=== PATIENT | female | born 1965 | race Caucasian/White ===

== ENCOUNTER 2018-03-06 16:33 | Emergency (ER) | payer OTHER ==
[~2018-03-06] VITALS: Ht 154.9 cm; Wt 50.7 kg
[~2018-03-06 16:33] MED LIST: ALBUAER19 INH; DOUNEB INH; LORA0.5T12 PO; OMEP20CA59 PO; RANI150T85 PO; SYMIN160 INH
[2018-03-06 16:45] VITALS: Ht 154.9 cm; Wt 50.7 kg
[2018-03-06] MEDS ORDERED: SODIUM CHLORIDE 0.9% 1000ML 1,000 ML IV STA ×2 (16:52→17:03)
[2018-03-06] MEDS ORDERED: GUAIFENESIN 600 MG TABCR PO STA (16:52)
[2018-03-06] MEDS ORDERED: SODIUM CHLORIDE 0.65% NA SOLN 45 ML (OCEAN) STA (16:52)
[2018-03-06] MEDS ORDERED: ALBUT/IPRATROP 3MG/0.5MG NEB 3 ML VIAL INH ONE (17:00)
[2018-03-06] MEDS ORDERED: KETOROLAC TROMETHAMINE 30 MG/ML VIAL IV STA (17:03)
[2018-03-06] MEDS ORDERED: ACETAMINOPHEN 500 MG TAB PO STA (17:03)
[2018-03-06 17:06] VITALS: PULSE 127; O2SAT 97
--- NOTE | 2018-03-06 17:14 | EMERGENCY ROOM VISIT NOTE ---
History Report prepared by Louie: Denita Roblero Under the Supervision of: Dr. Mitul Hernandes M.D. First contact with patient: 16:49 Chief Complaint: COUGH Stated Complaint: COUGH, WHEEZING History of Present Illness The patient is a 52 year old female who presents to the Emergency Room with complaints of persistent coughing that began 4 days ago. She reports that her cough worsened today, noting that she has been experiencing trouble breathing, shortness of breath, chills, body aches, congestion, and tightness in her chest. The patient denies any swelling in her legs, pain with urination, having the flu this year, or taking any medications to relieve her symptoms. She notes that she has been using her inhaler and breathing treatments at home, which have helped relieve some of her discomfort. The patient reports a history of lung cancer, asthma, and COPD, noting that she stopped smoking years ago. Source of History: patient Onset: 4 days ago Position: other (respiratory ) Quality: other (cough) Timing: other (persistent) Modifying Factors (Relieving): other (inhaler and breathing treatments) Associated Symptoms: + chills, + SOB Note: Associated symptoms include: trouble breathing, body aches, congestion, and tightness in her chest. Patient denies any swelling in her legs or pain with urination. Review of Systems See HPI for pertinent positives and negatives. A total of ten systems were reviewed and were otherwise negative. Past Medical & Surgical Medical Problems: (1) Acute appendicitis (2) Asthma (3) Bronchitis (4) Chronic Obstructive Asthma, Nos (5) Kidney disease (6) Pneumonia (7) Pneumothorax (8) Skin problem (9) Tobacco Use Disorder Family History Cancer Diabetes mellitus Heart disease Hypertension Lung disease Social History Smoking Status: Former Smoker Drug Use: none Marital Status: Housing Status: lives with family Occupation Status: employed Current/Historical Medications Scheduled Budesonide/Formoterol Fumarate (Symbicort 160/4.5 Inhaler), 2 PUFFS INH BID Omeprazole (Prilosec), 20 MG PO QAM Oseltamivir Phosphate (Tamiflu), 75 MG PO BID Prednisone (Prednisone), 3 TAB PO DAILY Scheduled PRN Albuterol Hfa (Ventolin Hfa), 2-4 PUFFS INH Q4-6HRS PRN for SOB/Wheezing Ipratropium-Albuterol (Duoneb), 1 TREATMENT INH QID PRN for SOB/Wheezing Allergies Coded Allergies: No Known Allergies (Unverified , 08/30/16) Physical Exam Vital Signs Date Time Temp Pulse Resp B/P (MAP) Pulse Ox O2 Delivery O2 Flow Rate FiO2 03/06/18 18:40 36.8 133 18 148/61 98 Room Air 03/06/18 17:50 134 13 161/73 100 Nebulizer 15.0 03/06/18 17:11 127 03/06/18 17:06 127 18 97 Nasal Cannula 03/06/18 16:45 37.8 134 20 186/90 97 Room Air Physical Exam GENERAL: Awake, alert, fatigued-appearing, in no acute distress HENT: Dry mucous membranes. Normocephalic, atraumatic. Oropharynx unremarkable. EYES: Normal conjunctiva. Sclera non-icteric. NECK: Supple. No nuchal rigidity. FROM. No JVD. RESPIRATORY: Scattered wheezes and rhonchi. CARDIAC: Sinus tachycardia. Extremities warm and well perfused. Pulses equal. ABDOMEN: Soft, non-distended. No tenderness to palpation. No rebound or guarding. No masses. RECTAL: Deferred. MUSCULOSKELETAL: Chest examination reveals no tenderness. The back is symmetrical on inspection without obvious abnormality. There is no CVA tenderness to palpation. No joint edema. LOWER EXTREMITIES: Calves are equal size bilaterally and non-tender. No edema. No discoloration. NEURO: Normal sensorium. No sensory or motor deficits noted. SKIN: No rash or jaundice noted. Medical Decision & Procedures ER Provider Diagnostic Interpretation: Radiology results as stated below per my review and radiologist interpretation: CHEST ONE VIEW PORTABLE CLINICAL HISTORY: Atypical chest pain COMPARISON STUDY: 01/07/2015 FINDINGS: Post thoracotomy changes are present on the right. There is right paramediastinal fibrotic change. There is hyperinflation. There is underlying emphysema. There is no acute parenchymal consolidation. There are no significant pleural effusions.[ IMPRESSION: 1. No active disease in the chest 2. Emphysema, postthoracotomy changes on the right, and right paramediastinal fibrotic scarring. Electronically signed by: Cristobal Osei M.D. 03/06/2018 5:27 PM Dictated Date/Time: 03/06/2018 5:26 PM Laboratory Results 03/06/18 17:13 Red Blood Count 4.63, Mean Corpuscular Volume 92.7, Mean Corpuscular Hemoglobin 32.4, Mean Corpuscular Hemoglobin Concent 35.0, Mean Platelet Volume 9.1, Neutrophils (%) (Auto) 74.1, Lymphocytes (%) (Auto) 16.9, Monocytes (%) (Auto) 8.1, Eosinophils (%) (Auto) 0.5, Basophils (%) (Auto) 0.2, Neutrophils # (Auto) 6.55, Lymphocytes # (Auto) 1.49, Monocytes # (Auto) 0.72, Eosinophils # (Auto) 0.04, Basophils # (Auto) 0.02 03/06/18 17:13 Test 03/06/18 17:05 03/06/18 17:13 Influenza Type A (RT-PCR) Neg for Influ A (NEG) Influenza Type B (RT-PCR) POS for Influ B (NEG) White Blood Count 8.84 K/uL (4.8-10.8) Red Blood Count 4.63 M/uL (4.2-5.4) Hemoglobin 15.0 g/dL (12.0-16.0) Hematocrit 42.9 % (37-47) Mean Corpuscular Volume 92.7 fL (80-100) Mean Corpuscular Hemoglobin 32.4 pg (25-34) Mean Corpuscular Hemoglobin Concent 35.0 g/dl (32-36) Platelet Count 276 K/uL (130-400) Mean Platelet Volume 9.1 fL (7.4-10.4) Neutrophils (%) (Auto) 74.1 % Lymphocytes (%) (Auto) 16.9 % Monocytes (%) (Auto) 8.1 % Eosinophils (%) (Auto) 0.5 % Basophils (%) (Auto) 0.2 % Neutrophils # (Auto) 6.55 K/uL (1.4-6.5) Lymphocytes # (Auto) 1.49 K/uL (1.2-3.4) Monocytes # (Auto) 0.72 K/uL (0.11-0.59) Eosinophils # (Auto) 0.04 K/uL (0-0.5) Basophils # (Auto) 0.02 K/uL (0-0.2) RDW Standard Deviation 42.8 fL (36.4-46.3) RDW Coefficient of Variation 12.6 % (11.5-14.5) Immature Granulocyte % (Auto) 0.2 % Immature Granulocyte # (Auto) 0.02 K/uL (0.00-0.02) Anion Gap 8.0 mmol/L (3-11) Est Creatinine Clear Calc Drug Dose 41.4 ml/min Estimated GFR () 61.2 Estimated GFR (Non- 52.8 BUN/Creatinine Ratio 8.9 (10-20) Calcium Level 8.8 mg/dl (8.5-10.1) Total Bilirubin 0.5 mg/dl (0.2-1) Direct Bilirubin 0.1 mg/dl (0-0.2) Aspartate Amino Transf (AST/SGOT) 33 U/L (15-37) Alanine Aminotransferase (ALT/SGPT) 80 U/L (12-78) Alkaline Phosphatase 97 U/L (45-117) Troponin I < 0.015 ng/ml (0-0.045) Total Protein 8.0 gm/dl (6.4-8.2) Albumin 4.0 gm/dl (3.4-5.0) Lipase 158 U/L (73-393) Laboratory results reviewed by me Medications Administered Medications (Trade) Dose Ordered Sig/Pilar Route Start Time Stop Time Status Last Admin Dose Admin Prednisone (PredniSONE TAB) 60 mg NOW STAT PO 03/06/18 16:52 03/06/18 16:58 DC 03/06/18 17:23 60 MG Albuterol/ Ipratropium (Duoneb) 12 ml ONE ONCE INH 03/06/18 17:00 03/06/18 17:01 DC 03/06/18 17:05 12 ML Guaifenesin (Mucinex Contr Rel Tab) 600 mg NOW STAT PO 03/06/18 16:52 03/06/18 16:58 DC 03/06/18 17:24 600 MG Sodium Chloride ([place] Nasal [place]) 2 sprays NOW STAT NA 03/06/18 16:52 03/06/18 16:58 DC 03/06/18 17:22 2 SPRAYS Sodium Chloride 1,000 ml @ 999 mls/hr Q1H1M STAT IV 03/06/18 16:52 03/06/18 17:52 DC 03/06/18 17:25 999 MLS/HR Acetaminophen (Tylenol Tab) 1,000 mg NOW STAT PO 03/06/18 17:03 03/06/18 17:05 DC 03/06/18 17:23 1,000 MG Ketorolac Tromethamine (Toradol Inj) 15 mg NOW STAT IV 03/06/18 17:03 03/06/18 17:05 DC 03/06/18 17:24 15 MG Sodium Chloride 1,000 ml @ 999 mls/hr Q1H1M STAT IV 03/06/18 17:03 03/06/18 18:03 DC 03/06/18 17:25 999 MLS/HR Oseltamivir Phosphate (Tamiflu Cap) 75 mg NOW STAT PO 03/06/18 18:25 03/06/18 18:26 DC 03/06/18 18:39 75 MG ECG Per My Interpretation Indication: SOB/dyspnea Rate (beats per minute): 133 Rhythm: sinus tachycardia Findings: RBBB (incomplete), no acute ischemic change, other (normal axis) Change: no significant change (01/05/15) ED Course 1649: The patient was evaluated in room A2. A complete history and physical exam was performed. 1845: I reevaluated the patient. Discussed results and discharge instructions: she verbalized understanding and agreement. The patient is ready for discharge. Medical Decision I reviewed the patient's past medical history, medications, and the nursing notes as described above. Differential diagnosis: Etiologies such as infections, reactive airway disease, pneumonia, pneumothorax , COPD, CHF, cardiac ischemia, pulmonary embolism, musculoskeletal, gastrointestinal, as well as others were entertained. The patient is a 52-year-old woman with a past medical history of lung cancer status post resection, chemotherapy, radiation in 2012 who presents emergency department with worsening cough over the past several days with feverishness and chills per hpi. On arrival the patient is in no acute distress, afebrile stable vital signs. She has scattered rhonchi and wheezes. EKG negative for acute ischemia. Chest x-ray negative for pneumonia. WBC within normal limits. Influenza B positive. Patient feeling improved after IV fluid hydration, prednisone, duo nebs. Patient was treated with Tamiflu. Findings discussed with the patient and her and a paper prescription was given to the for Tamiflu for influenza prophylaxis. Findings and plan for follow-up reviewed with patient. Patient agreeable and d/c'd per discharge instructions. Medication Reconcilliation Current Medication List: was personally reviewed by me Blood Pressure Screening Patient's blood pressure: Elevated blood pressure Blood pressure disposition: Elevated BP felt to be situational Impression Primary Impression: Influenza B Additional Impression: COPD exacerbation Scribe Attestation The scribe's documentation has been prepared under my direction and personally reviewed by me in its entirety. I confirm that the note above accurately reflects all work, treatment, procedures, and medical decision making performed by me. Departure Information Dispostion Home / Self-Care Prescriptions Prednisone (Prednisone) 20 Mg Tab 3 TAB PO DAILY for 4 Days, #12 TAB FOR 4 DAYS Prov: Mitul Hernandes M.D. 03/06/18 Oseltamivir Phosphate (Tamiflu) 75 Mg Cap 75 MG PO BID, #10 CAP Prov: Mitul Hernandes M.D. 03/06/18 Referrals Lorraine Fofana M.D. (PCP) Forms HOME CARE DOCUMENTATION FORM, IMPORTANT VISIT INFORMATION Patient Instructions ED COPD Flare, ED Flu, My [facility] Additional Instructions Please follow up with your primary care physician in the next 1-3 days for re- evaluation. You were found to have the flu (influenza B). Otherwise, your exam, EKG, chest xray, and lab results did not show signs of an emergent condition at this time. Acetaminophen or ibuprofen for pain and fevers as needed. Prednisone as directed. Tamiflu as directed. Saline nasal spray and [id number] Mucinex as needed to help thin and clear mucus. Use your albuterol inhaler every 4 hours for the next 48 hours and then as needed thereafter. Drink plenty of fluids to ensure hydration. Return to the emergency department for worsening symptoms as described in the accompanying instructions. Problem Qualifiers
[2018-03-06 17:27] LABS: BASO % 0.2 %; BASO ABS # 0.02 K/uL (0-0.2); EOS % 0.5 %; EOS ABS # 0.04 K/uL (0-0.5); HEMATOCRIT 42.9 % (37-47); IG# 0.02 K/uL (0.00-0.02); LYMPH % 16.9 %; LYMPH ABS # 1.49 K/uL (1.2-3.4); MEAN CELL VOLUME 92.7 fL (80-100); MEAN CORPUSCULAR HEMOGLOBIN 32.4 pg (25-34); MEAN PLATELET VOLUME 9.1 fL (7.4-10.4); MONO % 8.1 %; MONO ABS # 0.72 K/uL (0.11-0.59); NEUT % 74.1 %; NEUT ABS # 6.55 K/uL (1.4-6.5); PLATELET COUNT 276 K/uL (130-400); RED CELL DISTRIBUTION WIDTH CV 12.6 % (11.5-14.5); RED CELL DISTRIBUTION WIDTH SD 42.8 fL (36.4-46.3); WHITE BLOOD COUNT 8.84 K/uL (4.8-10.8)
--- NOTE | 2018-03-06 17:28 | DIAGNOSTIC IMAGING REPORT ---
CHEST ONE VIEW PORTABLE CLINICAL HISTORY: Atypical chest pain COMPARISON STUDY: 01/07/2015 FINDINGS: Post thoracotomy changes are present on the right. There is right paramediastinal fibrotic change. There is hyperinflation. There is underlying emphysema. There is no acute parenchymal consolidation. There are no significant pleural effusions.[ IMPRESSION: 1. No active disease in the chest 2. Emphysema, postthoracotomy changes on the right, and right paramediastinal fibrotic scarring. Electronically signed by: Cristobal Osei M.D. 03/06/2018 5:27 PM Dictated Date/Time: 03/06/2018 5:26 PM
[2018-03-06 17:46] LABS: ALT/SGPT 80 U/L (12-78); BLOOD UREA NITROGEN 10 mg/dl (7-18); CALCIUM 8.8 mg/dl (8.5-10.1); CARBON DIOXIDE 26 mmol/L (21-32); CREATININE 1.17 mg/dl (0.60-1.20); GLUCOSE 93 mg/dl (70-99); POTASSIUM 3.5 mmol/L (3.5-5.1); SODIUM 137 mmol/L (136-145)
[2018-03-06] MEDS ORDERED: IPRASOL4 INH (17:49)
[2018-03-06] MEDS ORDERED: OMEP20CA9 PO (17:49)
[2018-03-06] MEDS ORDERED: VNTHFA/IN INH (17:49)
[2018-03-06 17:51] LABS: ALKALINE PHOSPHATASE 97 U/L (45-117); AST/SGOT 33 U/L (15-37); LIPASE 158 U/L (73-393)
[2018-03-06 18:13] LABS: INFLUENZA A PCR Neg for Influ A (NEG)
[2018-03-06 18:15] LABS: INFLUENZA B PCR POS for Influ B (NEG)
[2018-03-06] MEDS ORDERED: OSELTAMIVIR PHOSPHATE 75 MG CAP PO STA (18:25)
[2018-03-06] MEDS ORDERED: OSEL75CA23 PO (18:26)
[2018-03-06] MEDS ORDERED: PRED20TA PO (18:26)
[2018-03-06 18:40] VITALS: BP 148/61; PULSE 133; TEMP 36.8; O2SAT 98
== END 2018-03-06 19:16 | disposition home or self-care (01) ==
LOC: C.EDB 16:34 → C.EDA 19:16
DX: J10.1 Influenza due to other identified influenza virus with other respiratory manifestations (principal); J44.1 Chronic obstructive pulmonary disease with (acute) exacerbation; Z85.118 Personal history of other malignant neoplasm of bronchus and lung; Z87.891 Personal history of nicotine dependence; Z87.01 Personal history of pneumonia (recurrent); N28.9 Disorder of kidney and ureter, unspecified; Z80.9 Family history of malignant neoplasm, unspecified; Z83.3 Family history of diabetes mellitus; Z82.49 Family history of ischemic heart disease and other diseases of the circulatory system; Z79.899 Other long term (current) drug therapy; Z90.2 Acquired absence of lung [part of]

== ENCOUNTER 2022-08-01 09:20 | Observation (INO) ==
[2022-08-01] MEDS ORDERED: KETOROLAC TROMETHAMINE 15 MG/ML VIAL IV ONE (09:35)
[2022-08-01] MEDS ORDERED: BENZONATATE 100 MG CAPSULE PO ONE (09:35)
[2022-08-01] MEDS ORDERED: ALBUTEROL 0.083% NEBU SOLN 3 ML VIAL NEB STA (09:35)
[2022-08-01] MEDS ORDERED: SODIUM CHLORIDE 0.9% 500 ML IV ONE (09:39)
--- NOTE | 2022-08-01 09:39 | Emergency Department Note ---
Impression & Plan Pneumonia, Cough, Shortness of breath ED Provider Note NAME: IVETT DOBBINS AGE: 57 SEX: F : 1965 ARRIVES VIA: Walk-In INFORMANT: Patient ED PROVIDER(S): Jose Juan Almonte DO CHIEF COMPLAINT: Cough and fevers HPI: Patient is a 57-year-old female with a past medical history of COPD that presents the ER for right-sided chest pain which started this past Wednesday. She notes on Wednesday she started with a cough and congestion. She has had fevers as high as 100.4. No loss of taste or smell. She is vaccinated for COVID x2. She notes the chest pain on the right side of her chest is only present with pushing on her chest wall, movement of her right arm and coughing. She denies any belly pain, nausea, vomiting, or diarrhea. No dysuria, urgency, or frequency. History of previous lung cancer. She is also had a previous pneumothorax. No other exacerbating or remitting factors. Pain is currently not present as she is not coughing but when present is sharp and stabbing ROS: See above HPI for pertinent positives & negatives. A total of 10 systems reviewed and were otherwise negative. PAST MEDICAL HISTORY:See Below PAST SURGICAL HISTORY:See Below FAMILY HISTORY:See Below SOCIAL HISTORY:See Below HOME MEDICATIONS:See Below ALLERGIES:See Below VITALS:See Below PHYSICAL EXAMINATION: GENERAL: Sitting up in bed, alert, well appearing, well nourished, no distress, non-toxic EYE EXAM: normal conjunctiva. OROPHARYNX: no exudate, no erythema, lips, buccal mucosa, and tongue normal and mucous membranes are moist NECK: supple, no nuchal rigidity, no adenopathy, non-tender CHEST: Reproducible right anterior chest wall pain midclavicular line ribs 3 thr ough 5. Same stated complaint LUNGS: Wheezing bilaterally. Normal chest wall mechanics HEART: no murmurs, S1 normal and S2 normal ABDOMEN: abdomen soft, non-tender, normo-active bowel sounds, no masses, no rebound or guarding. BACK: Back is symmetrical on inspection and there is no deformity, no midline tenderness, no CVA tenderness. UPPER EXTREMITIES: upper extremities are grossly normal. LOWER EXTREMITIES: No pitting edema. Calves are equal bilateral NEURO EXAM: Normal sensorium, cranial nerves II-XII grossly intact, normal speech, no gross weakness of arms, no gross weakness of legs. MEDICAL DECISION MAKING: Patient is a 57-year-old female who presents the ER fevers, shortness of breath and coughing as well as chest pain. IV was established blood work is obtained. Labs show leukocytosis of 13,000. No significant anemia. D-dimer was elevated at 2150. BMP with mild hyponatremia 128. LFTs were unremarkable. T bili 1.6. Troponin was negative. Lipase was unremarkable. COVID and influenza were unremarkable. CTA of the chest shows possible necrotizing pneumonia. Chest x- ray was unremarkable. Patient was given IV Zosyn and vancomycin. She was updated bedside. Discussed with the hospitalist for further evaluation. Discussed with Pt concerning signs and symptoms to watch out for. Pt was instructed to follow up with their PCP and discussed with the patient their option to return to the ED at anytime for persistent or worsening symptoms. The appropriate anticipatory guidance and out-patient management, including indications for return to the emergency department, were explained at length to the patient and understood. Triage Nursing notes reviewed. Limited review of prior medical records performed Vital Signs: reviewed and remarkable for HTN and tachy Differential diagnosis: Cardiac ischemia, aortic dissection, pulmonary embolism, pneumothorax, pneumonia, pericarditis, myocarditis, esophageal rupture, GERD, cholecystitis, pancreatitis, musculoskeletal, as well as other pathologies. ER treatment provided: See below Diagnostics interpreted by me: ECG: Sinus rhythm rate of 109 Normal axis No PVCs QTC 471 Cardiac Monitoring: An order was placed for continuous cardiac monitoring. The monitor shows a rate of 101 with sinus rhythm. Laboratory studies: As stated above and show below. Imaging studies: CT angio of the chest as described above Consultation(s): Discussed with Allyson mark for further evaluation Procedures: none Critical Care: None Past Med/Surg History Medical History Appendicitis Asthma COVID-19 Emphysema lung Hives Kidney disease Lung cancer Panic attacks Pneumothorax (10/15/11) Surgical History History of lobectomy of lung Social History Smoking Status: Former smoker Preferred Language: Arabic Feels Safe at Home: Yes Allergies Allergies Allergy/AdvReac Type Severity Reaction Status Date / Time No Known Allergies Allergy Verified 02/25/22 11:26 Home Meds Home Medications Medication Instructions Recorded Confirmed albuterol sulfate 90 mcg/actuation 2 puff inhalation Q6H PRN 11/25/19 08/01/22 aerosol inhaler (Ventolin HFA) Shortness Of Breath Or Wheezing ipratropium 0.5 mg-albuterol 3 mg 3 ml inhalation Q4H PRN Shortness 11/25/19 08/01/22 (2.5 mg base)/3 mL nebulization Of Breath Or Wheezing soln omeprazole 20 mg capsule,delayed 20 mg PO QAM 11/25/19 08/01/22 release famotidine 20 mg tablet 20 mg PO BID PRN Heartburn 02/25/22 08/01/22 fluticasone fur. 200 mcg-umeclid 1 inh inhalation QAM 02/25/22 08/01/22 62.5 mcg-vilant 25 mcg inhalat.powder (Trelegy Ellipta) escitalopram oxalate 10 mg tablet 10 mg PO DAILY 08/01/22 08/01/22 metoprolol succinate 100 mg 100 mg PO DAILY 08/01/22 08/01/22 tablet,extended release 24 hr Results & Data (ED) Vital Signs Vital Signs - 24 hr 08/01/22 09:27 08/01/22 09:51 08/01/22 10:13 Temperature 37.0 C Temperature Source Temporal Artery Scan Pulse Rate 113 H 109 H Pulse Rate [Finger] 105 H Pulse Rate from SpO2 Sensor Respiratory Rate 18 20 20 Respiratory Effort / Characteristics Non-Labored Respiratory Depth Normal Blood Pressure 141/74 H Blood Pressure [Left Arm] 132/60 Blood Pressure Mean 96 Blood Pressure Mean [Left Arm] 84 Blood Pressure Position [Left Arm] Semi-fowlers Pulse Oximetry 95 97 95 Oxygen Delivery Method Room Air Room Air Room Air Sepsis Recent Fever Within 48 Hours No Sepsis New/Unexplained Change in Mental Status No Sepsis Action Taken by Nursing No Action Required 08/01/22 09:56 08/01/22 10:00 08/01/22 10:30 Temperature Temperature Source Pulse Rate 109 H 108 H 111 H Pulse Rate [Finger] Pulse Rate from SpO2 Sensor 110 H 108 H 111 H Respiratory Rate 25 H 22 29 H Respiratory Effort / Characteristics Respiratory Depth Blood Pressure Blood Pressure [Left Arm] Blood Pressure Mean Blood Pressure Mean [Left Arm] Blood Pressure Position [Left Arm] Pulse Oximetry 94 94 95 Oxygen Delivery Method Sepsis Recent Fever Within 48 Hours Sepsis New/Unexplained Change in Mental Status Sepsis Action Taken by Nursing 08/01/22 11:05 08/01/22 11:30 08/01/22 12:00 Temperature Temperature Source Pulse Rate Pulse Rate [Finger] Pulse Rate from SpO2 Sensor 116 H 106 H 102 H Respiratory Rate Respiratory Effort / Characteristics Respiratory Depth Blood Pressure Blood Pressure [Left Arm] Blood Pressure Mean Blood Pressure Mean [Left Arm] Blood Pressure Position [Left Arm] Pulse Oximetry 92 93 94 Oxygen Delivery Method Sepsis Recent Fever Within 48 Hours Sepsis New/Unexplained Change in Mental Status Sepsis Action Taken by Nursing 08/01/22 12:30 08/01/22 12:38 08/01/22 12:38 Temperature Temperature Source Pulse Rate Pulse Rate [Finger] Pulse Rate from SpO2 Sensor 98 H 99 H Respiratory Rate Respiratory Effort / Characteristics Respiratory Depth Blood Pressure 142/71 H Blood Pressure [Left Arm] Blood Pressure Mean 94 Blood Pressure Mean [Left Arm] Blood Pressure Position [Left Arm] Pulse Oximetry 93 94 Oxygen Delivery Method Sepsis Recent Fever Within 48 Hours Sepsis New/Unexplained Change in Mental Status Sepsis Action Taken by Nursing 08/01/22 13:00 08/01/22 13:00 Temperature Temperature Source Pulse Rate 96 H Pulse Rate [Finger] Pulse Rate from SpO2 Sensor 96 H Respiratory Rate 20 Respiratory Effort / Characteristics Respiratory Depth Blood Pressure 128/61 Blood Pressure [Left Arm] Blood Pressure Mean 83 Blood Pressure Mean [Left Arm] Blood Pressure Position [Left Arm] Pulse Oximetry 94 Oxygen Delivery Method Sepsis Recent Fever Within 48 Hours Sepsis New/Unexplained Change in Mental Status Sepsis Action Taken by Nursing Laboratory Data Result diagrams: 08/01/22 09:45 08/01/22 09:45 Lab Results 08/01/22 08/01/22 08/01/22 Range/Units 09:45 09:45 09:45 WBC 13.31 H (4.8-10.8) K/ul RBC 4.52 (3.93-5.22) M/uL Hgb 14.1 (12.0-16.0) g/dl Hct 41.2 (34.1-44.9) % MCV 91.2 (80.0-100.0) fL MCH 31.2 (25.0-34.0) pg MCHC 34.2 (32.0-36.0) g/dL RDW Std Deviation 42.7 (36.4-46.3) fL RDW Coeff of Narcisa 12.9 (11.5-14.5) % Plt Count 269 (130-400) K/uL MPV 8.4 L (9.4-12.3) fL Immature Gran % (Auto) 0.5 % Neut % (Auto) 81.6 % Lymph % (Auto) 4.0 % Todd % (Auto) 10.9 % Eos % (Auto) 2.8 % Baso % (Auto) 0.2 % Neut # (Auto) 10.86 H (1.4-6.5) K/uL Lymph # (Auto) 0.53 L (1.2-3.4) K/uL Todd # (Auto) 1.45 H (0.24-0.82) K/uL Eos # (Auto) 0.37 (0-0.50) K/uL Baso # (Auto) 0.03 (0-0.2) K/uL Immature Gran # (Auto) 0.07 H (0.00-0.02) K/uL D-Dimer 2150 H* (0-500) ug/L FEU Sodium 128 L (136-145) mmol/L Potassium 3.8 (3.5-5.1) mmol/L Chloride 94 L (98-107) mmol/L Carbon Dioxide 25 (21-32) mmol/L Anion Gap 9 (3-11) BUN 7 (6-23) mg/dl Creatinine 0.71 (0.6-1.2) mg/dl Est Cr Clr Drug Dosing 60.9 ml/min Est GFR ( Amer) 108.1 ml/min Est GFR (Non-Af Amer) 93.2 ml/min BUN/Creatinine Ratio 9.9 L (10-20) Glucose 95 (70-99(Fasting)) mg/dl Lactate (0.4-2.0) mmol/L Calcium 9.1 (8.5-10.1) mg/dl Total Bilirubin 1.6 H (0.2-1.0) mg/dl AST 11 L (13-39) U/L ALT 7 (7-52) U/L Alkaline Phosphatase 98 (34-104) U/L Troponin I High Sens 4.8 (0-14) pg/ml Total Protein 7.8 (6.0-8.3) gm/dl Albumin 3.9 (3.4-5.0) gm/dl Globulin 3.9 (2.5-4.0) gm/dl Albumin/Globulin Ratio 1.0 (0.9-2) Lipase 18 (11-82) U/L SARS-CoV-2 (PCR) (Negative) Influenza Type A (PCR) (Neg) Influenza Type B (PCR) (Neg) RSV (RT-PCR) (Neg) 08/01/22 08/01/22 Range/Units 10:07 12:44 WBC (4.8-10.8) K/ul RBC (3.93-5.22) M/uL Hgb (12.0-16.0) g/dl Hct (34.1-44.9) % MCV (80.0-100.0) fL MCH (25.0-34.0) pg MCHC (32.0-36.0) g/dL RDW Std Deviation (36.4-46.3) fL RDW Coeff of Narcisa (11.5-14.5) % Plt Count (130-400) K/uL MPV (9.4-12.3) fL Immature Gran % (Auto) % Neut % (Auto) % Lymph % (Auto) % Todd % (Auto) % Eos % (Auto) % Baso % (Auto) % Neut # (Auto) (1.4-6.5) K/uL Lymph # (Auto) (1.2-3.4) K/uL Todd # (Auto) (0.24-0.82) K/uL Eos # (Auto) (0-0.50) K/uL Baso # (Auto) (0-0.2) K/uL Immature Gran # (Auto) (0.00-0.02) K/uL D-Dimer (0-500) ug/L FEU Sodium (136-145) mmol/L Potassium (3.5-5.1) mmol/L Chloride (98-107) mmol/L Carbon Dioxide (21-32) mmol/L Anion Gap (3-11) BUN (6-23) mg/dl Creatinine (0.6-1.2) mg/dl Est Cr Clr Drug Dosing ml/min Est GFR ( Amer) ml/min Est GFR (Non-Af Amer) ml/min BUN/Creatinine Ratio (10-20) Glucose (70-99(Fasting)) mg/dl Lactate 0.6 (0.4-2.0) mmol/L Calcium (8.5-10.1) mg/dl Total Bilirubin (0.2-1.0) mg/dl AST (13-39) U/L ALT (7-52) U/L Alkaline Phosphatase (34-104) U/L Troponin I High Sens (0-14) pg/ml Total Protein (6.0-8.3) gm/dl Albumin (3.4-5.0) gm/dl Globulin (2.5-4.0) gm/dl Albumin/Globulin Ratio (0.9-2) Lipase (11-82) U/L SARS-CoV-2 (PCR) NEGATIVE (Negative) Influenza Type A (PCR) Negative (Neg) Influenza Type B (PCR) Negative (Neg) RSV (RT-PCR) Negative (Neg) Administered Medications Vancomycin HCl 900 mg/ Sodium (Chloride) 518 mls @ 200 mls/hr IV NOW ONE Stop: 08/01/22 14:02 Last Admin: 08/01/22 13:18 Dose: 200 mls/hr Documented By: AM Discontinued Medications Albuterol (Albuterol 0.083% Nebu Soln 3 Ml Vial) 2.5 mg NEB NOW STA; Protocol Stop: 08/01/22 09:36 Last Admin: 08/01/22 09:59 Dose: 2.5 mg Documented By: TRH Benzonatate (Benzonatate 100 Mg Capsule) 100 mg PO NOW ONE Stop: 08/01/22 09:36 Last Admin: 08/01/22 10:00 Dose: 100 mg Documented By: TRH Sodium Chloride (Nss) 500 mls @ 999 mls/hr IV .Q31M ONE Stop: 08/01/22 10:09 Last Infusion: 08/01/22 10:42 Dose: 0 mls/hr Documented By: Admin: 08/01/22 10:01 Dose: 999 mls/hr Documented By: TRH Piperacillin Sod/Tazobactam Sod (Zosyn) 4.5 gm in 120 mls @ 240 mls/hr IV NOW ONE Stop: 08/01/22 11:56 Last Infusion: 08/01/22 13:18 Dose: 0 mls/hr Documented By: Admin: 08/01/22 12:39 Dose: 240 mls/hr Documented By: COLLINS Ioversol (Optiray 300 500ml) 108 ml IV ONCE ONE Stop: 08/01/22 11:48 Last Admin: 08/01/22 11:47 Dose: 108 ml Documented By: DANILO Ketorolac Tromethamine (Ketorolac Tromethamine 15 Mg/Ml Vial) 10 mg IV NOW ONE Stop: 08/01/22 09:36 Last Admin: 08/01/22 10:00 Dose: 10 mg Documented By: TERESITA Methylprednisolone (Methylprednisolone 40 Mg/Ml Vial) 40 mg IV NOW STA Stop: 08/01/22 09:36 Last Admin: 08/01/22 10:00 Dose: 40 mg Documented By: TERESITA Imaging Data Radiologist's Impression: Chest X-Ray 08/01/22 09:36 XR chest 1V portable HISTORY: Atypical Chest Pain COMPARISON: Chest x-ray and chest CTA 02/25/2022. FINDINGS: No pneumothorax. No pleural fusions. The cardiac silhouette is normal in size. There are calcifications within the aortic knob. Advanced emphysema is again noted. Interstitial thickening at the lung bases persists and may represent chronic change. There are postoperative changes within the upper right hemithorax again noted. There is progressive airspace opacity within the right u pper lobe. IMPRESSION: Interval development of a right upper lobe airspace opacity which likely represents a pneumonia. 1-2 month chest x-ray follow-up recommended to ensure resolution. ACT 112: Negative or not required by law. Electronically signed by: Bhupinder Parker M.D. 08/01/2022 10:01 AM Chest CTA 08/01/22 10:22 CHEST CTA for PULMONARY ARTERIES CT DOSE: 241.98 mGy.cm HISTORY: Right-sided chest pain. Assess for pulmonary embolus. TECHNIQUE: Multiaxial CT images of the chest were performed following the intravenous administration of contrast to evaluate the pulmonary arteries. Maximal intensity projection images were also obtained. A dose lowering technique was utilized adhering to the principles of ALARA. COMPARISON STUDY: Chest CTA 02/25/2022. FINDINGS: The visualized liver, spleen, and adrenal glands unremarkable. Normal esophagus. The thyroid gland enhances normally. No change in the mild bilateral axillary lymphadenopathy. No pleural or pericardial effusions. Slight progression of the mild mediastinal and bilateral hilar lymphadenopathy. No filling defects within the pulmonary arteries to suggest a pulmonary embolus. No evidence for right-sided heart strain. Normal caliber thoracic aorta with no evidence for dissection. Postoperative changes again noted within the right hemithorax. No acute fractures identified. No pneumothorax. Advanced emphysema again noted. Mild dependent changes seen at the lung bases. Interval development of a consolidative airspace opacity within the right upper lobe with scattered fluid levels within the emphysematous spaces. This likely represents a pneumonia and could represent a necrotizing pneumonia given the fluid levels stable 5 mm nodular density within the right lower lobe on image 57. Stable 9 mm irregular nodular density within the left upper lobe on image 204. IMPRESSION: 1. No evidence for pulmonary embolus. 2. Interval development of a consolidative airspace opacity within the right upper lobe with associated small fluid levels within the cystic spaces. This consistent with a pneumonia could represent a necrotizing pneumonia. 3. Advanced emphysema again noted. 4. Stable subcentimeter pulmonary nodules as described above. 5. Borderline mediastinal and hilar lymphadenopathy which is slightly progressed. This could be reactive to the suspected pneumonia. A no change in the bilateral hilar lymphadenopathy. ACT 112: Negative or not required by law. Electronically signed by: Bhupinder Parker M.D. 08/01/2022 11:16 AM Discharge Plan Visit Data Chief Complaint: Illness Stated Complaint: BREATHING ISSUES, CHEST PAIN, HEADACHE, DEHYDRATIO ED Provider: Jose Juan Almonte Discharge Problem: Pneumonia, Cough, Shortness of breath Forms Stand Alone Forms: [facility] Prescriptions Prescriptions: No Action ipratropium-albuterol 0.5 mg-3 mg(2.5 mg base)/3 mL solution for nebulization 3 ml INHALATION Q4H PRN (Reason: Shortness Of Breath Or Wheezing) omeprazole 20 mg capsule,delayed release(DR/EC) 20 mg PO QAM Rx Instructions: TAKE THIS MEDICATION ONCE DAILY ONE HOUR BEFORE FIRST MEAL OF THE DAY albuterol sulfate [Ventolin HFA] 90 mcg/actuation Hfa Aerosol Inhaler 2 puff INHALATION Q6H PRN (Reason: Shortness Of Breath Or Wheezing) famotidine 20 mg tablet 20 mg PO BID PRN (Reason: Heartburn) Trelegy Ellipta 200-62.5-25 mcg blister with device 1 inh INHALATION QAM metoprolol succinate 100 mg tablet extended release 24 hr 100 mg PO DAILY escitalopram oxalate 10 mg tablet 10 mg PO DAILY Referrals Referrals: Manny Escalante DO [Primary Care Provider] -
[2022-08-01 09:52] LABS: Basophils # (auto) 0.03 K/uL (0-0.2); Basophils % (auto) 0.2 %; Eosinophils # (auto) 0.37 K/uL (0-0.50); Eosinophils % (auto) 2.8 %; Hematocrit (blood only) 41.2 % (34.1-44.9); Hemoglobin 14.1 g/dl (12.0-16.0); Immature Granulocytes # (auto) 0.07 K/uL (0.00-0.02); Immature Granulocytes % (auto) 0.5 %; Lymphocytes # (auto) 0.53 K/uL (1.2-3.4); Mean Corpuscular Hemoglobin 31.2 pg (25.0-34.0); Mean Corpuscular Hgb Conc 34.2 g/dL (32.0-36.0); Mean Corpuscular Volume 91.2 fL (80.0-100.0); Mean Platelet Volume 8.4 fL (9.4-12.3); Monocytes # (auto) 1.45 K/uL (0.24-0.82); Monocytes % (auto) 10.9 %; Neutrophils # (auto) 10.86 K/uL (1.4-6.5); Neutrophils % (auto) 81.6 %; Platelet Count 269 K/uL (130-400); RDW Coefficient of Variation 12.9 % (11.5-14.5); RDW Standard Deviation 42.7 fL (36.4-46.3); Red Blood Count 4.52 M/uL (3.93-5.22); White Blood Count 13.31 K/ul (4.8-10.8)
--- NOTE | 2022-08-01 10:02 | XRay Report ---
XR chest 1V portable HISTORY: Atypical Chest Pain COMPARISON: Chest x-ray and chest CTA 02/25/2022. FINDINGS: No pneumothorax. No pleural fusions. The cardiac silhouette is normal in size. There are ca lcifications within the aortic knob. Advanced emphysema is again noted. Interstitial thickening at th e lung bases persists and may represent chronic change. There are postoperative changes within the up per right hemithorax again noted. There is progressive airspace opacity within the right upper lobe. IMPRESSION: Interval development of a right upper lobe airspace opacity which likely represents a pneumonia. 1-2 month chest x-ray follow-up recommended to ensure resolution. ACT 112: Negative or not required by law. Electronically signed by: Bhupinder Parker M.D. 08/01/2022 10:01 AM
[2022-08-01 10:18] LABS: Albumin Level 3.9 gm/dl (3.4-5.0); BUN Creatinine Ratio 9.9 (10-20); Bilirubin,Total 1.6 mg/dl (0.2-1.0); Calcium 9.1 mg/dl (8.5-10.1); Creatinine Clr Calc Pharmacy 60.9 ml/min; Est GFR (African American) 108.1 ml/min; Est GFR (Non-African American) 93.2 ml/min; Globulin 3.9 gm/dl (2.5-4.0); Potassium 3.8 mmol/L (3.5-5.1); Total Protein 7.8 gm/dl (6.0-8.3)
[2022-08-01 10:19] LABS: D Dimer 2150 ug/L FEU (0-500)
[2022-08-01 10:23] LABS: Troponin I High Sensitivity 4.8 pg/ml (0-14)
[2022-08-01 10:52] LABS: Influenza A virus by PCR Negative (Neg); Influenza B virus by PCR Negative (Neg); RSV by PCR Negative (Neg); SARS CoV2 RNA(COVID-19)Cepheid NEGATIVE (Negative)
[2022-08-01] MEDS ORDERED: OPTIRAY 300 500mL IV ONE ×2 (10:59→11:47)
--- NOTE | 2022-08-01 11:19 | CT Scan Report ---
CHEST CTA for PULMONARY ARTERIES CT DOSE: 241.98 mGy.cm HISTORY: Right-sided chest pain. Assess for pulmonary embolus. TECHNIQUE: Multiaxial CT images of the chest were performed following the intravenous administration of contrast to evaluate the pulmonary arteries. Maximal intensity projection images were also obtaine d. A dose lowering technique was utilized adhering to the principles of ALARA. COMPARISON STUDY: Chest CTA 02/25/2022. FINDINGS: The visualized liver, spleen, and adrenal glands unremarkable. Normal esophagus. The thyroi d gland enhances normally. No change in the mild bilateral axillary lymphadenopathy. No pleural or pe ricardial effusions. Slight progression of the mild mediastinal and bilateral hilar lymphadenopathy. No filling defects within the pulmonary arteries to suggest a pulmonary embolus. No evidence for righ t-sided heart strain. Normal caliber thoracic aorta with no evidence for dissection. Postoperative ch anges again noted within the right hemithorax. No acute fractures identified. No pneumothorax. Advanc ed emphysema again noted. Mild dependent changes seen at the lung bases. Interval development of a co nsolidative airspace opacity within the right upper lobe with scattered fluid levels within the emphy sematous spaces. This likely represents a pneumonia and could represent a necrotizing pneumonia given the fluid levels stable 5 mm nodular density within the right lower lobe on image 57. Stable 9 mm ir regular nodular density within the left upper lobe on image 204. IMPRESSION: 1. No evidence for pulmonary embolus. 2. Interval development of a consolidative airspace opacity within the right upper lobe with associat ed small fluid levels within the cystic spaces. This consistent with a pneumonia could represent a ne crotizing pneumonia. 3. Advanced emphysema again noted. 4. Stable subcentimeter pulmonary nodules as described above. 5. Borderline mediastinal and hilar lymphadenopathy which is slightly progressed. This could be react lionel to the suspected pneumonia. A no change in the bilateral hilar lymphadenopathy. ACT 112: Negative or not required by law. Electronically signed by: Bhupinder Parker M.D. 08/01/2022 11:16 AM
[2022-08-01] MEDS ORDERED: VANCOMYCIN HCL IV ONE (11:27)
[2022-08-01] MEDS ORDERED: SODIUM CHLORIDE 0.9% IV ONE (11:27)
[2022-08-01] MEDS ORDERED: VANCOMYCIN CONSULT ACTIVE PRN (11:27)
[2022-08-01] MEDS ORDERED: PIPERACILLIN/TAZOBACTAM 4.5 GM/120 ML BAG IV ONE (11:27)
--- NOTE | 2022-08-01 13:05 | Electrocardiogram Report ---
Test Reason : Blood Pressure : / mmHG Vent. Rate : 109 BPM Atrial Rate : 109 BPM P-R Int : 132 ms QRS Dur : 116 ms QT Int : 350 ms P-R-T Axes : 071 065 053 degrees QTc Int : 471 ms Sinus tachycardia Possible Left atrial enlargement Incomplete right bundle branch block Borderline ECG When compared with ECG of 25-FEB-2022 09:38, No significant change was found Confirmed by Arturo Garza ([id number]) on 08/01/2022 1:04:51 PM Referred By: REFERRED SELF Confirmed By:Polo Garza
--- NOTE | 2022-08-01 13:53 | History & Physical Report ---
Date of Service August 01, 2022 Assessment & Plan (1) Pneumonia: Plan: Admit to med surg with tele Patient presenting from home with reports of fever, cough, shortness of breath, right-sided chest pain x 6 days Possible early sepsis on presentation with tachycardia, tachypnea, WBC 13 K. BP stable, normal lactic acid. CTA chest negative for PE but shows Interval development of a consolidative airspace opacity within the right upper lobe with associated small fluid levels within the cystic spaces. This consistent with a pneumonia could represent a necrotizing pneumonia. Saturating well on room air Received IV Vanco and IV Zosyn in the ED, continue with Check MRSA nasal swab Sputum culture, blood cultures (noted drawn after antibiotic administration) Pulmonary toilet with nebs, Mucinex, incentive spirometer, flutter valve Pulmonary consult for possible necrotizing pneumonia (2) Hyponatremia: Plan: Na+ 128 Due to poor p.o. intake and/or SIADH from pneumonia Check urine and serum Osmo IVF, trend Na+ (3) Elevated d-dimer: Plan: CTA negative for PE, check BL LE Doppler for completeness (4) COPD (chronic obstructive pulmonary disease): Plan: No wheezing on exam, saturating well on room air Continue home inhaler Received IV Solu-Medrol in the ED, will hold on continuing steroids for now (5) Squamous cell carcinoma of right lung: Plan: History of in 2013, RLL, s/p resection and chemo CTA chest shows stable pulmonary nodules Follows with [facility] (6) Paroxysmal sinus tachycardia: Plan: Controlled on metoprolol (7) HTN (hypertension): Plan: BP controlled, continue metoprolol (8) DVT prophylaxis: Plan: SQ Lovenox History of Present Illness Chief Complaint: Cough, shortness of breath, fever Primary Care Provider: Manny Escalante DO 57-year-old female with PMH COPD, squamous cell lung carcinoma of RLL s/p resection and chemo in 2013, HTN, depression, anxiety, GERD, and other problems listed below who presents the ED for evaluation of cough, shortness of breath, fever. Patient reports she has been feeling ill for the past 6 days. Reports running a fever daily that she has been taking Tylenol and Motrin for. Reports a cough productive for yellow sputum. She has had progressive worsening shortness of breath. Reports right-sided chest pain with a deep breath and coughing. She has had a very poor appetite however denies abdominal pain, nausea, vomiting, diarrhea. No lightheadedness, dizziness, diaphoresis, syncopal events. Denies urinary symptoms. In the ED, patient is tachycardic, labs show WBC 13 K. Afebrile, stable BP, normal lactic acid. Elevated D-dimer. CTA chest negative for PE however shows Interval development of a consolidative airspace opacity within the right upper lobe with associated small fluid levels within the cystic spaces. This consistent with a pneumonia could represent a necrotizing pneumonia. Patient was given nebulizer treatment, Tessalon Perles, IV ketorolac, IV Solu-Medrol, IV Vanco, IV Zosyn, IVF. Allergies Allergy/AdvReac Type Severity Reaction Status Date / Time No Known Allergies Allergy Verified 02/25/22 11:26 Home Medications Medication Instructions Recorded Confirmed Type albuterol sulfate 90 mcg/actuation 2 puff inhalation Q6H PRN 11/25/19 08/01/22 History aerosol inhaler (Ventolin HFA) Shortness Of Breath Or Wheezing ipratropium 0.5 mg-albuterol 3 mg 3 ml inhalation Q4H PRN Shortness 11/25/19 08/01/22 History (2.5 mg base)/3 mL nebulization Of Breath Or Wheezing soln omeprazole 20 mg capsule,delayed 20 mg PO QAM 11/25/19 08/01/22 History release famotidine 20 mg tablet 20 mg PO BID PRN Heartburn 02/25/22 08/01/22 History fluticasone fur. 200 mcg-umeclid 1 inh inhalation QAM 02/25/22 08/01/22 History 62.5 mcg-vilant 25 mcg inhalat.powder (Trelegy Ellipta) escitalopram oxalate 10 mg tablet 10 mg PO DAILY 08/01/22 08/01/22 History metoprolol succinate 100 mg 100 mg PO DAILY 08/01/22 08/01/22 History tablet,extended release 24 hr ciprofloxacin HCl 500 mg tablet 500 mg PO BID 10 days #20 tabs 08/02/22 Rx guaifenesin 600 mg tablet, 600 mg PO Q12 10 days #20 tabs 08/02/22 Rx extended release 12 hr (Mucinex) Past Med/Surg History Medical History (Updated 08/01/22 @ 15:21 by MALIK Ferris) COPD (chronic obstructive pulmonary disease) Depression with anxiety HTN (hypertension) Mitral valve regurgitation Paroxysmal sinus tachycardia Pneumothorax (10/15/11) Squamous cell carcinoma of right lung 2013, s/p resection and chemo Surgical History History of appendectomy History of lobectomy of lung Family History Mother Hypertension Stroke Social History Smoking Status: Former smoker Second Hand Exposure: Yes; Do You Dip or Chew Tobacco: No; Tobacco Cessation Education Requested by Patient: No Hx Alcohol Use: Yes Alcohol type: wine Hx Substance Use: No Preferred Language: Citizen Of [place] Communication Ability: Effective Chin Strap Sewer Required: No Beliefs That Will Affect Care: None Current Living Situation: Spouse Other Information That Helps Us Care for You: No Feels Safe at Home: Yes Safety Concerns: Feels Safe At This Time Assistive Devices: None Review of Systems Review of Systems: ROS per HPI, all other systems reviewed and negative Physical Exam Constitutional: WD/WN, vitals as above Eyes: PERRL, conjunctivae normal, anicteric sclerae ENMT: external ear and nose normal, oropharynx normal Respiratory: normal respiratory effort; no respiratory distress Auscultation: + diminished lung sounds (right) Cardiovascular: Rate/Rhythm: regular rate and + tachycardic Vessels: normal peripheral pulses Extremities: no edema Gastrointestinal (Abdomen): normal bowel sounds, soft, nontender, no hepatosplenomegaly Musculoskeletal: no cyanosis or clubbing, extremities motor strength 5/5 Skin: no rashes, warm and dry Neurologic: PERRL, EOMI, accommodation nl, no face palsy, no dysarthria Psychiatric: A+Ox3, euthymic affect Results & Data Results & [facility] ([facility]) Vital Signs (Past 12 Hours) Vital Signs Temp Pulse Pulse Resp BP BP Pulse Ox 08/01/22 13:30 93 H 24 93 08/01/22 13:30 123/62 08/01/22 13:00 96 H 20 94 08/01/22 13:00 128/61 08/01/22 12:38 142/71 H 08/01/22 12:38 94 08/01/22 12:30 93 08/01/22 12:00 94 08/01/22 11:30 93 08/01/22 11:05 92 08/01/22 10:30 111 H 29 H 95 08/01/22 10:00 108 H 22 94 08/01/22 09:56 109 H 25 H 94 08/01/22 10:13 105 H 20 132/60 95 08/01/22 09:51 109 H 20 97 08/01/22 09:27 37.0 C 113 H 18 141/74 H 95 O2 Del Method 08/01/22 13:30 08/01/22 13:30 08/01/22 13:00 08/01/22 13:00 08/01/22 12:38 08/01/22 12:38 08/01/22 12:30 08/01/22 12:00 08/01/22 11:30 08/01/22 11:05 08/01/22 10:30 08/01/22 10:00 08/01/22 09:56 08/01/22 10:13 Room Air 08/01/22 09:51 Room Air 08/01/22 09:27 Room Air Laboratory Results Short CBC 08/01/22 Range/Units 09:45 WBC 13.31 H (4.8-10.8) K/ul Hgb 14.1 (12.0-16.0) g/dl Hct 41.2 (34.1-44.9) % Plt Count 269 (130-400) K/uL BMP 08/01/22 09:45 Sodium 128 L Potassium 3.8 Chloride 94 L Carbon Dioxide 25 BUN 7 Creatinine 0.71 Glucose 95 Calcium 9.1 Liver Function 08/01/22 Range/Units 09:45 Total Bilirubin 1.6 H (0.2-1.0) mg/dl AST 11 L (13-39) U/L ALT 7 (7-52) U/L Alkaline Phosphatase 98 (34-104) U/L Albumin 3.9 (3.4-5.0) gm/dl Diagnostic Findings Chest X-Ray 08/01/22 09:36 XR chest 1V portable HISTORY: Atypical Chest Pain COMPARISON: Chest x-ray and chest CTA 02/25/2022. FINDINGS: No pneumothorax. No pleural fusions. The cardiac silhouette is normal in size. There are calcifications within the aortic knob. Advanced emphysema is again noted. Interstitial thickening at the lung bases persists and may represent chronic change. There are postoperative changes within the upper right hemithorax again noted. There is progressive airspace opacity within the right upper lobe. IMPRESSION: Interval development of a right upper lobe airspace opacity which likely represents a pneumonia. 1-2 month chest x-ray follow-up recommended to ensure resolution. ACT 112: Negative or not required by law. Electronically signed by: Bhupinder Parker M.D. 08/01/2022 10:01 AM Chest CTA 08/01/22 10:22 CHEST CTA for PULMONARY ARTERIES CT DOSE: 241.98 mGy.cm HISTORY: Right-sided chest pain. Assess for pulmonary embolus. TECHNIQUE: Multiaxial CT images of the chest were performed following the intravenous administration of contrast to evaluate the pulmonary arteries. Maximal intensity projection images were also obtained. A dose lowering technique was utilized adhering to the principles of ALARA. COMPARISON STUDY: Chest CTA 02/25/2022. FINDINGS: The visualized liver, spleen, and adrenal glands unremarkable. Normal esophagus. The thyroid gland enhances normally. No change in the mild bilateral axillary lymphadenopathy. No pleural or pericardial effusions. Slight progression of the mild mediastinal and bilateral hilar lymphadenopathy. No filling defects within the pulmonary arteries to suggest a pulmonary embolus. No evidence for right-sided heart strain. Normal caliber thoracic aorta with no evidence for dissection. Postoperative changes again noted within the right hemithorax. No acute fractures identified. No pneumothorax. Advanced emphysema again noted. Mild dependent changes seen at the lung bases. Interval development of a consolidative airspace opacity within the right upper lobe with scattered fluid levels within the emphysematous spaces. This likely represents a pneumonia and could represent a necrotizing pneumonia given the fluid levels stable 5 mm nodular density within the right lower lobe on image 57. Stable 9 mm irregular nodular density within the left upper lobe on image 204. IMPRESSION: 1. No evidence for pulmonary embolus. 2. Interval development of a consolidative airspace opacity within the right upper lobe with associated small fluid levels within the cystic spaces. This consistent with a pneumonia could represent a necrotizing pneumonia. 3. Advanced emphysema again noted. 4. Stable subcentimeter pulmonary nodules as described above. 5. Borderline mediastinal and hilar lymphadenopathy which is slightly progressed. This could be reactive to the suspected pneumonia. A no change in the bilateral hilar lymphadenopathy. ACT 112: Negative or not required by law. Electronically signed by: Bhupinder Parker M.D. 08/01/2022 11:16 AM Code Status & VTE Plan Code Status Patient is a full code as per my discussion with her. VTE Prophylaxis Plan VTE Prophylaxis will be ordered: Yes Supervising Physician Co-Signing Physician Notes Pt seen and examined by me, care coordinated w/ L. MALIK Mcfarland, please refer to her note above for further detail. 57 yo F with COPD, squamous cell lung carcinoma of RLL s/p resection and chemo in 2013, HTN, depression, anxiety, who presents with cough, shortness of breath, fever, right upper chest pain/ pleuritic. In the ED, patient is tachycardic, labs show WBC 13 K. Afebrile, stable BP, normal lactic acid. Elevated D- dimer. CTA chest negative for PE however shows Interval development of a consolidative airspace opacity within the right upper lobe with associated small fluid levels within the cystic spaces. She was started on IV Zosyn and IV vancomycin. During IV vancomycin infusion, she developed red itchy palms of her hands, and some itchiness of her back. Also reported to feel more short of breath. IV vancomycin was stopped and she felt better immediately. Tried to restart IV vancomycin infusion at lower rate however she developed symptoms again. Therefore stopped IV vancomycin and started doxycycline. IV Zosyn was continued. Patient sitting up in bed, in no acute distress. Physical exam as above. Given history of lung cancer, COPD, and now pneumonia, will further discuss with pulmonary medicine. MD Severo
[2022-08-01] MEDS ORDERED: ACETAMINOPHEN 325 MG TAB PO PRN (14:14)
[2022-08-01] MEDS ORDERED: ENOXAPARIN INJ 40 MG/0.4 ML SYR SQ SCH ×2 (14:14→15:00)
[2022-08-01] MEDS: SODIUM CHLORIDE 0.9% 1000ML 1,000 ML IV SCH (15:00)
[2022-08-01] MEDS: ALBUT/IPRATROP 3MG/0.5MG NEB 3 ML VIAL NEB PRN (16:23)
[2022-08-01] MEDS ORDERED: diphenhydrAMINE Capsule 25 MG CAP PO ONE (16:51)
[2022-08-01] MEDS: PIPERACILLIN/TAZOBACTAM 3.375 GM in DEXTROSE 5% 100 ML IV SCH (17:19)
[2022-08-01] MEDS: DOXYCYCLINE HYCLATE 100 MG in DEXTROSE 5% 100 ML IV SCH (18:09)
[2022-08-01 18:54] LABS: BUN Creatinine Ratio 8.7 (10-20); Calcium 8.2 mg/dl (8.5-10.1); Creatinine Clr Calc Pharmacy 63.1 ml/min; Est GFR (African American) 110.4 ml/min; Est GFR (Non-African American) 95.3 ml/min; Potassium 3.1 mmol/L (3.5-5.1)
[2022-08-01] MEDS ORDERED: POTASSIUM CHLORIDE CRTAB 20 MEQ TABCR PO STA (19:01)
[2022-08-01] MEDS: guaiFENesin 600 MG TABCR PO SCH (21:03)
[2022-08-02] MEDS: PIPERACILLIN/TAZOBACTAM 3.375 GM in DEXTROSE 5% 100 ML IV SCH (01:18)
[2022-08-02] MEDS: ALBUT/IPRATROP 3MG/0.5MG NEB 3 ML VIAL NEB PRN (03:50)
[2022-08-02] MEDS: SODIUM CHLORIDE 0.9% 1000ML 1,000 ML IV SCH (04:33)
[2022-08-02] MEDS: DOXYCYCLINE HYCLATE 100 MG in DEXTROSE 5% 100 ML IV SCH (05:20)
--- NOTE | 2022-08-02 06:45 | Ultrasound Report ---
BILATERAL LOWER EXTREMITY VENOUS DOPPLER HISTORY: elevated d. dimer COMPARISON STUDY: None. FINDINGS: There is normal compressibility, flow, and augmentation within the bilateral lower extremit y deep venous systems. IMPRESSION: No DVT within the right or left lower extremity. ACT 112: Negative or not required by law. Electronically signed by: Bhupinder Parker M.D. 08/02/2022 6:43 AM
[2022-08-02] MEDS ORDERED: PANTOprazole 40 MG TAB PO SCH (07:30)
[2022-08-02 08:10] LABS: Hematocrit (blood only) 37.6 % (34.1-44.9); Hemoglobin 12.5 g/dl (12.0-16.0); Mean Corpuscular Hemoglobin 30.9 pg (25.0-34.0); Mean Corpuscular Hgb Conc 33.2 g/dL (32.0-36.0); Mean Corpuscular Volume 93.1 fL (80.0-100.0); Mean Platelet Volume 8.6 fL (9.4-12.3); Platelet Count 293 K/uL (130-400); RDW Coefficient of Variation 12.9 % (11.5-14.5); RDW Standard Deviation 43.8 fL (36.4-46.3); Red Blood Count 4.04 M/uL (3.93-5.22); White Blood Count 15.32 K/ul (4.8-10.8)
[2022-08-02] MEDS: guaiFENesin 600 MG TABCR PO SCH (08:22)
[2022-08-02] MEDS: UMECLIDINIUM/VILANTEROL 62.5/25MCG 7 PUFFS/INHALER INH SCH ×2 (08:24→08:59)
[2022-08-02] MEDS: FLUTICASONE FUROATE 200MCG 14 PUFFS/INHALER INH SCH ×2 (08:24→09:00)
[2022-08-02 08:30] LABS: BUN Creatinine Ratio 13.1 (10-20); Calcium 8.8 mg/dl (8.5-10.1); Creatinine Clr Calc Pharmacy 71.3 ml/min; Est GFR (Non-African American) 99.2 ml/min; Magnesium 1.7 mg/dl (1.7-2.4); Phosphorus 2.2 mg/dl (2.5-4.9); Potassium 3.6 mmol/L (3.5-5.1)
--- NOTE | 2022-08-02 08:51 | Pulmonary Consultation ---
Date of Consultation August 02, 2022 Assessment & Plan (1) Pneumonia: (2) COPD (chronic obstructive pulmonary disease): Plan Impression: 57-year-old female with prior history of squamous cell carcinoma and severe obstructive lung disease presenting now with signs symptoms and radio graphic findings concerning for pneumonia. She has been initiated on antibiotics and is somewhat improved. There was concern about a necrotizing infection however I think review of the CT scan demonstrates that the patient just has airspace opacity superimposed on severe emphysematous changes. Ne vertheless, follow-up imaging is recommended. Recommendations: 1. Pneumonia: The patient has structurally abnormal lungs. There is no culture data in our system that would suggest prior resistant organisms. I think her antibiotics can be transitioned from parenteral to p.o. Would recommend placing her on a course of ciprofloxacin for 10 days given potential Bilitis. She will need to follow-up with her outpatient major general and would recommend a follow-up CT scan be performed probably in 6 to 8 weeks. 2. COPD: The patient is not overtly bronchospastic currently. Do not see an indication for systemic steroids at this point time. Continue Trelegy and as needed albuterol and as needed nebulizers. From a lung standpoint, the patient does not require inpatient evaluation and can be dismissed from the hospital with follow-up as noted above. Ultimate disposition is deferred to the patient's primary care service. Thanks for the opportunity participating in the care of this patient. Feel free to contact us if we can be of assistance. Otherwise pulmonary will sign off at this point time. History of Present Illness Attending Physician: Darinel Elkins MD History of Present Illness Asked by hospitalist to evaluate this patient with an abnormal CT scan. History is obtained from discussion with the patient as well as review the electronic medical record. The patient is a 57-year-old female who follows with Dr. Mckinney at the [facility] pulmonary clinic. She has a history of advanced COPD and is scheduled to undergo repeat PFTs and a 6-minute walk test next month. She has had 2 episodes of bronchitis requiring antibiotics this year. She states she started feeling poorly about 5 days ago with subjective chills. She tried to ride it out at home but developed progressive fevers and a productive cough. She was bringing up yellow phlegm. She never had hemoptysis. She was seen in the emergency room and had a CT scan performed which revealed severe emphysematous changes with an airspace opacity within the right upper lobe. Given the underlying emphysema, there was concern about potential necrotizing infection. The patient was placed on Zosyn and vancomycin and admitted to hospital service. She did have some chest pain which is now resolved. She states she is feeling better. She is not on oxygen. She does not use positive pressure ventilation at night. The patient has lost about 10 pounds over the last year. She states she has a reduced appetite. She does have a prior history of squamous cell carcinoma status postresection of the right upper lobe in 2012 with concomitant chemotherapy. Allergies Allergy/AdvReac Type Severity Reaction Status Date / Time No Known Allergies Allergy Verified 02/25/22 11:26 Home Medications Medication Instructions Recorded Confirmed Type albuterol sulfate 90 mcg/actuation 2 puff inhalation Q6H PRN 11/25/19 08/01/22 History aerosol inhaler (Ventolin HFA) Shortness Of Breath Or Wheezing ipratropium 0.5 mg-albuterol 3 mg 3 ml inhalation Q4H PRN Shortness 11/25/19 08/01/22 History (2.5 mg base)/3 mL nebulization Of Breath Or Wheezing soln omeprazole 20 mg capsule,delayed 20 mg PO QAM 11/25/19 08/01/22 History release famotidine 20 mg tablet 20 mg PO BID PRN Heartburn 02/25/22 08/01/22 History fluticasone fur. 200 mcg-umeclid 1 inh inhalation QAM 02/25/22 08/01/22 History 62.5 mcg-vilant 25 mcg inhalat.powder (Trelegy Ellipta) escitalopram oxalate 10 mg tablet 10 mg PO DAILY 08/01/22 08/01/22 History metoprolol succinate 100 mg 100 mg PO DAILY 08/01/22 08/01/22 History tablet,extended release 24 hr Patient History Medical History (Updated 08/01/22 @ 15:21 by MALIK Ferris) COPD (chronic obstructive pulmonary disease) Depression with anxiety HTN (hypertension) Mitral valve regurgitation Paroxysmal sinus tachycardia Pneumothorax (10/15/11) Squamous cell carcinoma of right lung 2013, s/p resection and chemo Surgical History History of appendectomy History of lobectomy of lung Family History Mother Hypertension Stroke Social History Smoking Status: Former smoker Second Hand Exposure: Yes; Do You Dip or Chew Tobacco: No; Tobacco Cessation Education Requested by Patient: No Hx Alcohol Use: Yes Alcohol type: wine Hx Substance Use: No Preferred Language: Hungarian Communication Ability: Effective Senior Solutions Architect Required: No Beliefs That Will Affect Care: None Current Living Situation: Spouse Other Information That Helps Us Care for You: No Feels Safe at Home: Yes Safety Concerns: Feels Safe At This Time Assistive Devices: None Review of Systems Review of Systems: All systems reviewed & are unremarkable except as noted in Subjective Physical Exam Constitutional: WD/WN, vitals as above Neck: trachea midline, no thyromegaly Respiratory: no respiratory distress, no labored breathing, no cough and not tachypneic Auscultation: + diminished lung sounds and + crackles; no wheezes Cardiovascular: RRR, no murmur, no edema Gastrointestinal (Abdomen): normal bowel sounds, soft, nontender, no hepatosplenomegaly Musculoskeletal: Extremities: extremities normal to inspection Skin: no rashes, warm and dry Neurologic: Nonfocal exam Lymphatic: no cervical lymphadenopathy Results & Data Results & Data ([facility]) Vital Signs (Past 12 Hours) Vital Signs Temp Pulse Pulse Resp BP Pulse Ox O2 Del Method 08/02/22 08:00 Room Air 08/02/22 07:29 36.7 C 93 H 18 127/68 94 Room Air 08/02/22 06:48 88 08/02/22 03:51 92 H 16 94 Room Air 08/02/22 03:45 36.6 C 98 H 16 115/66 98 Room Air 08/01/22 23:25 96 H 08/01/22 23:15 36.6 C 89 16 113/65 92 Room Air Laboratory Results 08/02/22 07:50 08/02/22 07:[address] of the chest from 08/01/2022 was independently reviewed and compared to prior CT scan from January. No PE is identified. There is airspace opacity within the right upper lung field superimposed on severe centrilobular and paraseptal emphysematous changes. PG Care Time/CCT Total # of Minutes Spent Total Time Spent with Patient: Total time spent is greater than 50% in coordination of care (as documented) at patient's floor/unit and/or counseling patient: Coding Level of Care Code 54923 Inpt Consult Level 4 Diagnoses Pneumonia J18.9 COPD (chronic obstructive pulmonary disease) J44.9
[2022-08-02] MEDS ORDERED: ESCITALOPRAM OXALATE 10 MG TAB PO SCH (09:00)
[2022-08-02] MEDS ORDERED: CIPROFLOXACIN 500 MG TAB PO SCH (09:00)
[2022-08-02] MEDS ORDERED: METOPROLOL SUCC 50MG EXT REL TAB PO SCH (09:00)
[2022-08-02] MEDS ORDERED: POTASSIUM CHLORIDE PWD 20 MEQ PACK PO ONE (09:28)
[2022-08-02] MEDS ORDERED: MAGNESIUM SULFATE / D5W 1 GM/100 ML BAG IV ONE (09:30)
--- NOTE | 2022-08-02 10:16 | Hospitalist Progress Note ---
Date of Service August 02, 2022 Assessment & Plan (1) Pneumonia: Plan: Patient presenting from home with reports of fever, cough, shortness of breath, right-sided chest pain x 6 days Possible early sepsis on presentation with tachycardia, tachypnea, WBC 13 K. BP stable, normal lactic acid. CTA chest negative for PE but shows Interval development of a consolidative airspace opacity within the right upper lobe with associated small fluid levels within the cystic spaces. This consistent with a pneumonia could represent a necrotizing pneumonia. Saturating well on room air Received IV Vanco and IV Zosyn in the ED, continue with Check MRSA nasal swab Sputum culture, blood cultures (noted drawn after antibiotic administration) Pulmonary toilet with nebs, Mucinex, incentive spirometer, flutter valve Pulmonary consult for possible necrotizing pneumonia Note: During IV vancomycin infusion, patient developed itchiness and redness of the palms of her hands, and some itchiness on her back. [place] increased shortness of breath. IV vancomycin was stopped, and her symptoms resolved. Tried to restart IV vancomycin at low rate, however she developed symptoms again, therefore antibiotic was stopped altogether. And switched to doxycycline instead. IV Zosyn was continued. 08/01 Patient seen by pulmonary medicine. Switched to p.o. ciprofloxacin, plan for 10 days. Patient is supposed to follow-up with her community health educator, and recommend follow-up CT in about 6 weeks. She is sitting up in chair, breathing on room air. Her right upper chest pain resolved. Overall feeling well. Breathing is be back to baseline. By CMS guidelines, a determination that the admission or continued stay is not medically necessary has been made by a member of the UR committee and a physician for this hospital stay, therefore a Code 44 will be completed and the Inpatient admission will be changed to outpatient. MD Severo (2) Hyponatremia: Plan: Na+ 128 on admission, now 135 Due to poor p.o. intake and/or SIADH from pneumonia Check urine and serum Osmo urine osm 188, serum osm 266 IVF resolved after IVF follow up w/ PCP (3) Elevated d-dimer: Plan: CTA negative for PE, checked BL LE Doppler - negative for DVT (4) COPD (chronic obstructive pulmonary disease): Plan: No wheezing on exam, saturating well on room air Continue home inhaler Received IV Solu-Medrol in the ED, hold on continuing steroids (5) Squamous cell carcinoma of right lung: Plan: History of in 2013, RLL, s/p resection and chemo CTA chest shows stable pulmonary nodules Follows with [facility] (6) Paroxysmal sinus tachycardia: Plan: Controlled on metoprolol (7) HTN (hypertension): Plan: BP controlled, continue metoprolol (8) DVT prophylaxis: Plan: SQ Lovenox Admission and Anticipated Discharge Date Admission Date: August 01, 2022 Subjective Pt seen in follow up of pneumonia She was seen by pulmonary medicine this morning, and switched to p.o. antibiotics Currently sitting up in chair, in no acute distress. Reports that her right upper chest pain/pleuritic, is resolved. She is on room air. She feels well. Reports breathing is at her baseline. No fevers or chills. No nausea, vomiting, or abdominal pain. Review of Systems Review of Systems: All systems reviewed & are unremarkable except as noted in Subjective Physical Exam Physical Exam: Constitutional:L WD/WN, vitals as a naldo Eyes: PERRL, EOMI, conju nctivae normal, an icteric sclerae ENMT: external ear and n ose normal, oropha rynx normal Respiratory: normal respiratory effort; no respir atory distress Au scultation: + dimi nished lung sounds (right) Cardiovascular:L RRR Vessels: juice l peripheral pulse s Extremities: no edema Gastrointestinal ( Abdomen): normal bowel sound s, soft, nontender Musculoskeletal: extremities motor strength 5/5 Skin: no rashes, warm an d dry Neurologic: PERRL, EOMI, no fa ce palsy, no dysar thria, moves extre mities Psychiatric: A+Ox3, euthymic af fect Results & Data Results & Data ([facility]) Vital Signs (Past 12 Hours) Vital Signs Temp Pulse Pulse Resp BP Pulse Ox O2 Del Method 08/02/22 08:00 Room Air 08/02/22 07:29 36.7 C 93 H 18 127/68 94 Room Air 08/02/22 06:48 88 08/02/22 03:51 92 H 16 94 Room Air 08/02/22 03:45 36.6 C 98 H 16 115/66 98 Room Air 08/01/22 23:25 96 H 08/01/22 23:15 36.6 C 89 16 113/65 92 Room Air Laboratory Results 08/02/22 08/02/22 08/01/22 Range/Units 07:50 07:50 20:15 WBC 15.32 H (4.8-10.8) K/ul RBC 4.04 (3.93-5.22) M/uL Hgb 12.5 (12.0-16.0) g/dl Hct 37.6 (34.1-44.9) % MCV 93.1 (80.0-100.0) fL MCH 30.9 (25.0-34.0) pg MCHC 33.2 (32.0-36.0) g/dL RDW Std Deviation 43.8 (36.4-46.3) fL RDW Coeff of Narcisa 12.9 (11.5-14.5) % Plt Count 293 (130-400) K/uL MPV 8.6 L (9.4-12.3) fL D-Dimer (0-500) ug/L FEU Sodium 135 L (136-145) mmol/L Potassium 3.6 (3.5-5.1) mmol/L Chloride 105 (98-107) mmol/L Carbon Dioxide 23 (21-32) mmol/L Anion Gap 7 (3-11) BUN 8 (6-23) mg/dl Creatinine 0.61 (0.6-1.2) mg/dl Est Cr Clr Drug Dosing 71.3 ml/min Est GFR ( Amer) 115.0 ml/min Est GFR (Non-Af Amer) 99.2 ml/min BUN/Creatinine Ratio 13.1 (10-20) Glucose 117 H (70-99(Fasting)) mg/dl Osmolality (280-300) mOsm/kg Lactate (0.4-2.0) mmol/L Calcium 8.8 (8.5-10.1) mg/dl Phosphorus 2.2 L (2.5-4.9) mg/dl Magnesium 1.7 (1.7-2.4) mg/dl Total Bilirubin (0.2-1.0) mg/dl AST (13-39) U/L ALT (7-52) U/L Alkaline Phosphatase (34-104) U/L Troponin I High Sens (0-14) pg/ml Total Protein (6.0-8.3) gm/dl Albumin (3.4-5.0) gm/dl Globulin (2.5-4.0) gm/dl Albumin/Globulin Ratio (0.9-2) Lipase (11-82) U/L Urine Osmolality (500-800) mOsm/kg Nasal Screen MRSA (PCR) Negative (Negative) SARS-CoV-2 (PCR) (Negative) Influenza Type A (PCR) (Neg) Influenza Type B (PCR) (Neg) RSV (RT-PCR) (Neg) 08/01/22 08/01/22 08/01/22 Range/Units 18:12 18:01 12:44 WBC (4.8-10.8) K/ul RBC (3.93-5.22) M/uL Hgb (12.0-16.0) g/dl Hct (34.1-44.9) % MCV (80.0-100.0) fL MCH (25.0-34.0) pg MCHC (32.0-36.0) g/dL RDW Std Deviation (36.4-46.3) fL RDW Coeff of Narcisa (11.5-14.5) % Plt Count (130-400) K/uL MPV (9.4-12.3) fL D-Dimer (0-500) ug/L FEU Sodium 128 L (136-145) mmol/L Potassium 3.1 L (3.5-5.1) mmol/L Chloride 98 (98-107) mmol/L Carbon Dioxide 21 (21-32) mmol/L Anion Gap 9 (3-11) BUN 6 (6-23) mg/dl Creatinine 0.69 (0.6-1.2) mg/dl Est Cr Clr Drug Dosing 63.1 ml/min Est GFR ( Amer) 110.4 ml/min Est GFR (Non-Af Amer) 95.3 ml/min BUN/Creatinine Ratio 8.7 L (10-20) Glucose 265 H (70-99(Fasting)) mg/dl Osmolality (280-300) mOsm/kg Lactate 0.6 (0.4-2.0) mmol/L Calcium 8.2 L (8.5-10.1) mg/dl Phosphorus (2.5-4.9) mg/dl Magnesium (1.7-2.4) mg/dl Total Bilirubin (0.2-1.0) mg/dl AST (13-39) U/L ALT (7-52) U/L Alkaline Phosphatase (34-104) U/L Troponin I High Sens (0-14) pg/ml Total Protein (6.0-8.3) gm/dl Albumin (3.4-5.0) gm/dl Globulin (2.5-4.0) gm/dl Albumin/Globulin Ratio (0.9-2) Lipase (11-82) U/L Urine Osmolality 188 L (500-800) mOsm/kg Nasal Screen MRSA (PCR) (Negative) SARS-CoV-2 (PCR) (Negative) Influenza Type A (PCR) (Neg) Influenza Type B (PCR) (Neg) RSV (RT-PCR) (Neg) 08/01/22 08/01/22 08/01/22 Range/Units 10:07 09:45 09:45 WBC (4.8-10.8) K/ul RBC (3.93-5.22) M/uL Hgb (12.0-16.0) g/dl Hct (34.1-44.9) % MCV (80.0-100.0) fL MCH (25.0-34.0) pg MCHC (32.0-36.0) g/dL RDW Std Deviation (36.4-46.3) fL RDW Coeff of Narcisa (11.5-14.5) % Plt Count (130-400) K/uL MPV (9.4-12.3) fL D-Dimer 2150 H* (0-500) ug/L FEU Sodium (136-145) mmol/L Potassium (3.5-5.1) mmol/L Chloride (98-107) mmol/L Carbon Dioxide (21-32) mmol/L Anion Gap (3-11) BUN (6-23) mg/dl Creatinine (0.6-1.2) mg/dl Est Cr Clr Drug Dosing ml/min Est GFR ( Amer) ml/min Est GFR (Non-Af Amer) ml/min BUN/Creatinine Ratio (10-20) Glucose (70-99(Fasting)) mg/dl Osmolality 266 L (280-300) mOsm/kg Lactate (0.4-2.0) mmol/L Calcium (8.5-10.1) mg/dl Phosphorus (2.5-4.9) mg/dl Magnesium (1.7-2.4) mg/dl Total Bilirubin (0.2-1.0) mg/dl AST (13-39) U/L ALT (7-52) U/L Alkaline Phosphatase (34-104) U/L Troponin I High Sens (0-14) pg/ml Total Protein (6.0-8.3) gm/dl Albumin (3.4-5.0) gm/dl Globulin (2.5-4.0) gm/dl Albumin/Globulin Ratio (0.9-2) Lipase (11-82) U/L Urine Osmolality (500-800) mOsm/kg Nasal Screen MRSA (PCR) (Negative) SARS-CoV-2 (PCR) NEGATIVE (Negative) Influenza Type A (PCR) Negative (Neg) Influenza Type B (PCR) Negative (Neg) RSV (RT-PCR) Negative (Neg) 08/01/22 Range/Units 09:45 WBC (4.8-10.8) K/ul RBC (3.93-5.22) M/uL Hgb (12.0-16.0) g/dl Hct (34.1-44.9) % MCV (80.0-100.0) fL MCH (25.0-34.0) pg MCHC (32.0-36.0) g/dL RDW Std Deviation (36.4-46.3) fL RDW Coeff of Narcisa (11.5-14.5) % Plt Count (130-400) K/uL MPV (9.4-12.3) fL D-Dimer (0-500) ug/L FEU Sodium 128 L (136-145) mmol/L Potassium 3.8 (3.5-5.1) mmol/L Chloride 94 L (98-107) mmol/L Carbon Dioxide 25 (21-32) mmol/L Anion Gap 9 (3-11) BUN 7 (6-23) mg/dl Creatinine 0.71 (0.6-1.2) mg/dl Est Cr Clr Drug Dosing 60.9 ml/min Est GFR ( Amer) 108.1 ml/min Est GFR (Non-Af Amer) 93.2 ml/min BUN/Creatinine Ratio 9.9 L (10-20) Glucose 95 (70-99(Fasting)) mg/dl Osmolality (280-300) mOsm/kg Lactate (0.4-2.0) mmol/L Calcium 9.1 (8.5-10.1) mg/dl Phosphorus (2.5-4.9) mg/dl Magnesium (1.7-2.4) mg/dl Total Bilirubin 1.6 H (0.2-1.0) mg/dl AST 11 L (13-39) U/L ALT 7 (7-52) U/L Alkaline Phosphatase 98 (34-104) U/L Troponin I High Sens 4.8 (0-14) pg/ml Total Protein 7.8 (6.0-8.3) gm/dl Albumin 3.9 (3.4-5.0) gm/dl Globulin 3.9 (2.5-4.0) gm/dl Albumin/Globulin Ratio 1.0 (0.9-2) Lipase 18 (11-82) U/L Urine Osmolality (500-800) mOsm/kg Nasal Screen MRSA (PCR) (Negative) SARS-CoV-2 (PCR) (Negative) Influenza Type A (PCR) (Neg) Influenza Type B (PCR) (Neg) RSV (RT-PCR) (Neg) Medications Administered Current Inpatient Medications Acetaminophen (Acetaminophen 325 Mg Tab) 650 mg PO Q4H PRN PRN Reason: pain/fever Stop: 08/31/22 14:13 Albuterol (Albut/Ipratrop 3mg/0.5mg Neb 3 Ml Vial) 3 ml NEB Q4R PRN; Protocol PRN Reason: shortness of breath Stop: 08/31/22 14:13 Last Admin: 08/02/22 03:50 Dose: 3 ml Ciprofloxacin (Ciprofloxacin 500 Mg Tab) 500 mg PO BID [facility] Stop: 08/12/22 08:59 Last Admin: 08/02/22 10:12 Dose: 500 mg Enoxaparin Sodium (Enoxaparin Inj 40 Mg/0.4 Ml Syr) 40 mg SQ Q24H [facility] Stop: 08/31/22 14:59 Last Admin: 08/01/22 15:32 Dose: 40 mg Escitalopram Oxalate (Escitalopram Oxalate 10 Mg Tab) 10 mg PO DAILY [facility] Stop: 09/01/22 08:59 Last Admin: 08/02/22 08:22 Dose: 10 mg Fluticasone Furoate (Fluticasone Furoate 200mcg 14 Puffs/Inhaler) 1 puffs INH QAM [facility] Stop: 09/01/22 08:59 Last Admin: 08/02/22 09:00 Dose: 1 puffs Guaifenesin (Guaifenesin 600 Mg Tabcr) 600 mg PO Q12 [facility] Stop: 08/31/22 20:59 Last Admin: 08/02/22 08:22 Dose: 600 mg Magnesium Sulfate/Dextrose (Magnesium Sulfate / D5w) 1 gm in 100 mls @ 50 mls/hr IV ONE ONE Stop: 08/02/22 11:29 Last Admin: 08/02/22 09:56 Dose: 50 mls/hr Metoprolol Succinate (Metoprolol Succ 50mg Ext Rel Tab) 100 mg PO DAILY [facility] Stop: 09/01/22 08:59 Last Admin: 08/02/22 08:22 Dose: 100 mg Pantoprazole Sodium (Pantoprazole 40 Mg Tab) 40 mg PO DAILY@0730 [facility]; Protocol Stop: 09/01/22 07:29 Last Admin: 08/02/22 07:37 Dose: 40 mg Umeclidinium/Vilanterol (Umeclidinium/Vilanterol 62.5/25mcg 7 Puffs/Inhaler) 1 puffs INH QAM [facility] Stop: 09/01/22 08:59 Last Admin: 08/02/22 08:59 Dose: 1 puffs
--- NOTE | 2022-08-02 10:31 | Discharge Summary ---
Date of Service August 02, 2022 Admission HPI Per Admitting Provider 57-year-old female with PMH COPD, squamous cell lung carcinoma of RLL s/p resection and chemo in 2013, HTN, depression, anxiety, GERD, and other problems listed below who presents the ED for evaluation of cough, shortness of breath, fever. Patient reports she has been feeling ill for the past 6 days. Reports running a fever daily that she has been taking Tylenol and Motrin for. Reports a cough productive for yellow sputum. She has had progressive worsening shortness of breath. Reports right-sided chest pain with a deep breath and coughing. She has had a very poor appetite however denies abdominal pain, nausea, vomiting, diarrhea. No lightheadedness, dizziness, diaphoresis, syncopal events. Denies urinary symptoms. In the ED, patient is tachycardic, labs show WBC 13 K. Afebrile, stable BP, normal lactic acid. Elevated D-dimer. CTA chest negative for PE however shows Interval development of a consolidative airspace opacity within the right upper lobe with associated small fluid levels within the cystic spaces. This consistent with a pneumonia could represent a necrotizing pneumonia. Patient was given nebulizer treatment, Tessalon Perles, IV ketorolac, IV Solu-Medrol, IV Vanco, IV Zosyn, IVF. Admission Exam Per Admitting Provider Constitutional: WD/WN, vitals as above Eyes: PERRL, conjunctivae normal, anicteric sclerae ENMT: external ear and nose normal, oropharynx normal Respiratory: normal respiratory effort; no respiratory distress Auscultation: + diminished lung sounds (right) Cardiovascular: Rate/Rhythm: regular rate and + tachycardic Vessels: normal peripheral pulses Extremities: no edema Gastrointestinal (Abdomen): normal bowel sounds, soft, nontender, no hepatosplenomegaly Musculoskeletal: no cyanosis or clubbing, extremities motor strength 5/5 Skin: no rashes, warm and dry Neurologic: PERRL, EOMI, accommodation nl, no face palsy, no dysarthria Psychiatric: A+Ox3, euthymic affect Principal Diagnosis Right upper lobe pneumonia Discharge Exam Constitutional: WD/WN, vitals as above Eyes: PERRL, EOMI, conjunctivae normal, anicteric sclerae ENMT: external ear and nose normal, oropharynx normal Respiratory: normal respiratory effort; no respiratory distress Auscultation: + diminished lung sounds (right) Cardiovascular: RRR Vessels: normal peripheral pulses Extremities: no edema Gastrointestinal (Abdomen): normal bowel sounds, soft, nontender Musculoskeletal: extremities motor strength 5/5 Skin: no rashes, warm and dry Neurologic: PERRL, EOMI, no face palsy, no dysarthria, moves extremities Psychiatric: A+Ox3, euthymic affect Discharge Data Allergies Allergy/AdvReac Type Severity Reaction Status Date / Time No Known Allergies Allergy Verified 02/25/22 11:26 Consultations 08/01/22 11:30 ED Decision to Admit Stat 08/01/22 14:14 Consult Pulmonology Routine Ordered Studies 08/01/22 10:22 CT angio chest PE protocol Stat FINDINGS: The visualized liver, spleen, and adrenal glands unremarkable. Normal esophagus. The thyroid gland enhances normally. No change in the mild bilateral axillary lymphadenopathy. No pleural or pericardial effusions. Slight progression of the mild mediastinal and bilateral hilar lymphadenopathy. No filling defects within the pulmonary arteries to suggest a pulmonary embolus. No evidence for right-sided heart strain. Normal caliber thoracic aorta with no evidence for dissection. Postoperative changes again noted within the right hemithorax. No acute fractures identified. No pneumothorax. Advanced emphysema again noted. Mild dependent changes seen at the lung bases. Interval development of a consolidative airspace opacity within the right upper lobe with scattered fluid levels within the emphysematous spaces. This likely represents a pneumonia and could represent a necrotizing pneumonia given the fluid levels stable 5 mm nodular density within the right lower lobe on image 57. Stable 9 mm irregular nodular density within the left upper lobe on image 204. IMPRESSION: 1. No evidence for pulmonary embolus. 2. Interval development of a consolidative airspace opacity within the right upper lobe with associated small fluid levels within the cystic spaces. This consistent with a pneumonia could represent a necrotizing pneumonia. 3. Advanced emphysema again noted. 4. Stable subcentimeter pulmonary nodules as described above. 5. Borderline mediastinal and hilar lymphadenopathy which is slightly progressed. This could be reactive to the suspected pneumonia. A no change in the bilateral hilar lymphadenopathy. 08/01/22 13:12 US venous doppler LE BI Routine FINDINGS: There is normal compressibility, flow, and augmentation within the bilateral lower extremity deep venous systems. IMPRESSION: No DVT within the right or left lower extremity. Hospital Course (1) Pneumonia: Patient presenting from home with reports of fever, cough, shortness of breath, right-sided chest pain x 6 days Possible early sepsis on presentation with tachycardia, tachypnea, WBC 13 K. BP stable, normal lactic acid. CTA chest negative for PE but shows Interval development of a consolidative airspace opacity within the right upper lobe with associated small fluid levels within the cystic spaces. This consistent with a pneumonia could represent a necrotizing pneumonia. Saturating well on room air Received IV Vanco and IV Zosyn in the ED, continue with Check MRSA nasal swab Sputum culture, blood cultures (noted drawn after antibiotic administration) Pulmonary toilet with nebs, Mucinex, incentive spirometer, flutter valve Pulmonary consult for possible necrotizing pneumonia Note: During IV vancomycin infusion, patient developed itchiness and redness of the palms of her hands, and some itchiness on her back. [place] increased shortness of breath. IV vancomycin was stopped, and her symptoms resolved. Tried to restart IV vancomycin at low rate, however she developed symptoms again, therefore antibiotic was stopped altogether. And switched to doxycycline instead. IV Zosyn was continued. 08/01 Patient seen by pulmonary medicine. Switched to p.o. ciprofloxacin, plan for 10 days. 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 She is sitting up in chair, breathing on room air. Her right upper chest pain resolved. Overall feeling well. Breathing is be back to baseline. By CMS guidelines, a determination that the admission or continued stay is not medically necessary has been made by a member of the UR committee and a physician for this hospital stay, therefore a Code 44 will be completed and the Inpatient admission will be changed to outpatient. MD Severo (2) Hyponatremia: Na+ 128 on admission, now 135 Due to poor p.o. intake and/or SIADH from pneumonia Check urine and serum Osmo urine osm 188, serum osm 266 IVF resolved after IVF follow up w/ PCP (3) Elevated d-dimer: CTA negative for PE, checked BL LE Doppler - negative for DVT (4) COPD (chronic obstructive pulmonary disease): No wheezing on exam, saturating well on room air Continue home inhaler Received IV Solu-Medrol in the ED, hold on continuing steroids (5) Squamous cell carcinoma of right lung: History of in 2012, RLL, s/p resection and chemo CTA chest shows stable pulmonary nodules Follows with [facility] (6) Paroxysmal sinus tachycardia: Controlled on metoprolol (7) HTN (hypertension): BP controlled, continue metoprolol (8) DVT prophylaxis: Total Time Total Time Spent Total Time Spent (In Minutes): 40 Discharge Plan Discharge Items Patient Disposition: Home - Self-Care Reason For Visit: PNEUMONIA Discharge Diagnosis: Right upper lobe pneumonia Activity: Per Instructions section Non-emergency contact: Primary Care Provider and [employer] Molding Machine Operator Call non-emergency contact if: you have any medication questions and your symptoms worsen Follow-up/Referrals: Manny Escalante DO [Primary Care Provider] - Diet: Heart Healthy Addtl Attending Provider Instructions: Follow-up with your primary care doctor within 1 week. Also follow-up with your albacore fishing boat crewman. Finish antibiotic treatment with ciprofloxacin, as prescribed. Pending Studies at Discharge: Yes Studies:: Final blood cultures Stand-Alone Forms: My [employer], Smoking Cessation Medications and DC Order Prescriptions: New guaifenesin [Mucinex] 600 mg Tablet Extended Release 12hr 600 mg PO Q12 10 Days Qty: 20 0RF ciprofloxacin HCl 500 mg Tablet 500 mg PO BID 10 Days Qty: 20 0RF Continued ipratropium-albuterol 0.5 mg-3 mg(2.5 mg base)/3 mL solution for nebulization 3 ml INHALATION Q4H PRN (Reason: Shortness Of Breath Or Wheezing) omeprazole 20 mg capsule,delayed release(DR/EC) 20 mg PO QAM Rx Instructions: TAKE THIS MEDICATION ONCE DAILY ONE HOUR BEFORE FIRST MEAL OF THE DAY albuterol sulfate [Ventolin HFA] 90 mcg/actuation Hfa Aerosol Inhaler 2 puff INHALATION Q6H PRN (Reason: Shortness Of Breath Or Wheezing) famotidine 20 mg tablet 20 mg PO BID PRN (Reason: Heartburn) Trelegy Ellipta 200-62.5-25 mcg blister with device 1 inh INHALATION QAM metoprolol succinate 100 mg tablet extended release 24 hr 100 mg PO DAILY escitalopram oxalate 10 mg tablet 10 mg PO DAILY Discharge Orders: Discharge Order (Routine); Ordered 08/02/22 Ordered By: Darinel Elkins Admission Data Admit Date/Time: 08/01/22 12:44 Attending Provider: Darinel Elkins Admit Provider: Darinel Elkins Primary Care Provider: Manny Escalante Other Providers: Darinel Elkins ; Juan M Good
--- NOTE | 2022-08-02 15:27 | Communication Note ---
Date of Service: August 02, 2022 Code 44 attestation: 57-year-old female with COPD was admitted with pneumonia. She has been appropriately treated and was evaluated by neighborhood planner and was advised that she could go home today. Her chart, imaging studies and medication reviewed. Appropriately discharge by attending. By CMS guidelines, a determination that the admission or continued stay is not medically necessary has been made by a member of the UR committee and a physician for this hospital stay, therefore a Code 44 will be completed and the Inpatient admission will be changed to outpatient. Dr Damien Brar Member UR Committee
--- NOTE | 2022-09-14 07:25 | Coding Query ---
A supporting diagnosis is required for the test/procedure performed on this patient in order for us to be reimbursed by the patient's insurance. Please provide a supporting diagnosis for the following test/procedure listed below next to the test name along with your signature. *If there is no additional diagnosis for this patient that would support the following test/procedure please document that below next to the test/procedure. Test(s)/Procedure(s) that require a supporting diagnosis: VENOUS DOPPLER LOWER EXT BILAT DIAGNOSIS:_Elevated D- dimer D-dimer was obtained in emergency room during initial evaluation and was found elevated at 2150. CT PE was done to rule out PE. As CT was negative other causes were examined for elevated D-dimer such as lower extremity DVT. Therefore doppler was obtained. Provider Signature: __Darinel Elkins MD Date: 09/25/22__ Thank you Adela Cervantes [employer] Once completed, please kindly fax back to [phone] For questions please call [phone] ROSE MARY
== END 2022-08-02 12:50 | disposition home or self-care (01) ==
LOC: ED 09:20 → 2W 12:44 → INTOOBSV 12:44 → 2W 13:41